=== PATIENT | female | born 1995 | race Caucasian/White ===

== ENCOUNTER 2021-07-13 05:20 | Inpatient (IN) ==
[2021-07-13] MEDS ORDERED: CITRIC ACID/SODIUM CITRATE 30 ML UDCUP PO ONE (05:29)
[2021-07-13] MEDS ORDERED: ceFAZolin 2,000 MG/50 ML DUPLEX IV ONE (05:29)
[2021-07-13] MEDS ORDERED: FAMOTIDINE 20 MG/2 ML VIAL IV ONE (05:29)
[2021-07-13] MEDS ORDERED: METHYLERGONOVINE 0.2 MG/1 ML AMP ONE ×2 (05:45→08:20)
[2021-07-13] MEDS ORDERED: miSOPROStoL 200 MCG TABLET ONE (05:45)
[2021-07-13] MEDS ORDERED: TRANEXAMIC ACID 1,000 MG/10 ML VIAL ONE (05:45)
[2021-07-13] MEDS ORDERED: CARBOPROST TROMETHAMINE 250 MCG/ML AMP IM ONE ×2 (05:45→08:21)
[2021-07-13] MEDS ORDERED: SODIUM CHLORIDE 0.9% 0 ML IV ONE (05:46)
[2021-07-13] MEDS: LACTATED RINGERS 1,000 ML IV SCH ×3 (05:48→21:20)
[2021-07-13 05:54] LABS: Basophils % 0.3 % (0.0-0.8); Eosinophils # 0.1 10*3/uL (0.0-0.87); Eosinophils % 1.2 % (0.00-10.9); Hematocrit 37.8 VOL% (35.7-47.0); Hemoglobin 12.7 GM/DL (12.0-16.0); Immature Granulocytes % 1.7 %; Immature Granulocytes Absolute 0.17 #; Lymphocytes # 1.6 10*3/uL (1.4-4.0); Lymphocytes % 15.7 % (21.3-54.2); Mean Corpuscular HGB Conc 33.6 GM/DL (32-36); Mean Corpuscular Volume 90.6 FL (87-102); Mean Platelet Volume 9.3 FL (9.6-12.0); Monocytes % 6.2 % (1.7-12.7); Neutrophils % 74.9 % (38.7-73.9); Platelet Count 198 T/CUMM (130-400); Red Blood Count 4.17 MC/CUMM (3.8-5.5); Red Cell Distribution Width 14.1 % (9.3-17.3)
[2021-07-13] MEDS ORDERED: OXYTOCIN/LR 20 UNIT/1,000 ML BAG IV ONE ×2 (08:20→12:57)
[2021-07-13] MEDS ORDERED: ONDANSETRON 4 MG/2 ML VIAL ONE (09:14)
[2021-07-13] MEDS ORDERED: METOCLOPRAMIDE 10 MG/2 ML VIAL ONE (09:14)
[2021-07-13] MEDS ORDERED: BUPIVACAINE SPINAL 0.75% 2 ML AMP SPINAL ONE (09:15)
[2021-07-13] MEDS ORDERED: ePHEDrine 50 MG/ML VIAL ONE (09:43)
[2021-07-13] MEDS: OXYTOCIN/LR 20 UNIT/1,000 ML BAG IV SCH ×2 (10:01→10:29)
[2021-07-13] MEDS ORDERED: METHYLERGONOVINE 0.2 MG/1 ML AMP IM ONE (10:02)
[2021-07-13] MEDS ORDERED: PROMETHAZINE 25 MG/1 ML VIAL ONE (10:10)
[2021-07-13] MEDS ORDERED: MIDAZOLAM 2 MG/2 ML VIAL ONE (10:11)
[2021-07-13] MEDS ORDERED: PROMETHAZINE INJ 12.5 MG in SODIUM CHLORIDE 0.9% 50 ML IV ONE (10:14)
[2021-07-13] MEDS ORDERED: PROMETHAZINE INJ 25 MG in SODIUM CHLORIDE 0.9% 50 ML IV ONE (10:14)
[2021-07-13] MEDS ORDERED: propofoL 200 MG/20 ML VIAL IV ONE (10:18)
[2021-07-13] MEDS ORDERED: PROMETHAZINE 25 MG/1 ML VIAL IM PRN ×2 (10:21)
[2021-07-13] MEDS ORDERED: METOPROLOL TARTRATE 5 MG/5 ML VIAL IV ONE (10:25)
[2021-07-13] MEDS ORDERED: LACTATED RINGERS 2,000 ML IV ONE (10:26)
[2021-07-13] MEDS ORDERED: KETOROLAC 30 MG/1 ML VIAL ONE (10:35)
[2021-07-13 10:53] LABS: Cord Arterial Blood HCO3 25.1 MMOL/L
[2021-07-13 10:54] LABS: Cord Venous Blood HCO3 23.4 MMOL/L; Cord Venous Blood PCO2 45.4 MMHG; Cord Venous Blood PO2 32.8
[2021-07-13 12:29] LABS: Bilirubin,Urine Negative (Negative); Blood, Urine Moderate mg/dL (Negative); Glucose,Urine (UA) Negative (Negative); Ketones,Urine Negative (Negative); Nitrite,Urine Negative (Negative); Protein,Urine Negative; Squamous Epithelial Cell,Urine Occasional /HPF (0-10); Urine Appearance CLEAR (Clear); Urine Color Yellow (Yellow); Urine Urobilinogen < 2.0 EU/DL (<2.0)
[2021-07-13] MEDS ORDERED: WITCH HAZEL PADS 100/JAR TOP PRN (12:57)
[2021-07-13] MEDS ORDERED: oxyCODONE/ACETAMINOPHEN 5-325 MG TABLET PO PRN ×2 (12:57)
[2021-07-13] MEDS ORDERED: BENZOCAINE 20%/MENTHOL 0.5% SPRAY 56 GM CAN TOP PRN (12:57)
[2021-07-13] MEDS ORDERED: BISACODYL 10 MG SUPP RECTAL PRN (12:57)
[2021-07-13] MEDS ORDERED: LANOLIN 50% CREAM 0.3 OZ TUBE TOP PRN (12:57)
[2021-07-13] MEDS ORDERED: HYDROCORTISONE 2.5% RECTAL CREAM 30 GM TUBE TOP PRN (12:57)
[2021-07-13] MEDS ORDERED: DIPH/TET/ACEL PERT BOOSTER VACCINE 0.5 ML VIAL IM ONE (12:57)
[2021-07-13] MEDS ORDERED: ONDANSETRON 4 MG/2 ML VIAL IV PRN (12:57)
[2021-07-13] MEDS ORDERED: ACETAMINOPHEN 325 MG TABLET PO PRN (12:57)
[2021-07-13] MEDS ORDERED: RHO(D) IMMUNE GLOBULIN 300 MCG SYRINGE IM ONE (12:57)
[2021-07-13] MEDS ORDERED: MEASLES/MUMPS/RUBELLA VACCINE 0.5 ML VIAL SUBCUT ONE (12:57)
[2021-07-13] MEDS ORDERED: ACETAMINOPHEN 500 MG TABLET PO SCH (13:30)
[2021-07-13] MEDS ORDERED: diphenhydrAMINE CAP 25 MG CAPSULE PO PRN (14:31)
[2021-07-13] MEDS: ACETAMINOPHEN 500 MG TABLET PO SCH ×2 (14:35→20:37)
[2021-07-13] MEDS: KETOROLAC 30 MG/1 ML VIAL IV SCH ×2 (14:35→20:37)
[2021-07-13] MEDS ORDERED: KETOROLAC 30 MG/1 ML VIAL IV SCH (16:30)
[2021-07-13] MEDS: diphenhydrAMINE CAP 25 MG CAPSULE PO PRN (18:17)
[2021-07-14] MEDS: DOCUSATE SODIUM 100 MG CAPSULE PO SCH ×2 (01:26→20:34)
[2021-07-14] MEDS: diphenhydrAMINE CAP 25 MG CAPSULE PO PRN (01:57)
[2021-07-14] MEDS: ACETAMINOPHEN 500 MG TABLET PO SCH (01:58)
[2021-07-14] MEDS: KETOROLAC 30 MG/1 ML VIAL IV SCH (01:59)
[2021-07-14 05:15] LABS: Basophils % 0.2 % (0.0-0.8); Eosinophils # 0.1 10*3/uL (0.0-0.87); Eosinophils % 0.7 % (0.00-10.9); Hematocrit 32.1 VOL% (35.7-47.0); Hemoglobin 10.8 GM/DL (12.0-16.0); Immature Granulocytes % 0.7 %; Immature Granulocytes Absolute 0.07 #; Lymphocytes # 1.3 10*3/uL (1.4-4.0); Lymphocytes % 13.4 % (21.3-54.2); Mean Corpuscular HGB Conc 33.6 GM/DL (32-36); Mean Platelet Volume 9.6 FL (9.6-12.0); Monocytes % 7.8 % (1.7-12.7); Neutrophils % 77.2 % (38.7-73.9); Platelet Count 173 T/CUMM (130-400); Red Blood Count 3.45 MC/CUMM (3.8-5.5); Red Cell Distribution Width 14.3 % (9.3-17.3); White Blood Count 9.8 T/CUMM (4-12)
[2021-07-14] MEDS: IBUPROFEN 800 MG TABLET PO PRN ×2 (12:08→20:25)
[2021-07-15] MEDS: IBUPROFEN 800 MG TABLET PO PRN (06:28)
[2021-07-15] MEDS ORDERED: MAGNESIUM HYDROXIDE SUSP 30 ML UDCUP PO PRN (08:10)
[2021-07-15] MEDS: DOCUSATE SODIUM 100 MG CAPSULE PO SCH (08:35)
[2021-07-15 09:27] VITALS: BP 107/63
== END 2021-07-15 17:00 | disposition home or self-care (01) | DRG 788 ==
LOC: N.LD 05:20 → N.OB 12:58
PROVIDERS: ADMIT Specialist; ATTEND Specialist
PROC: LDCSECT (ICD-10-PCS; 2021-07-13 09:30)